=== PATIENT | male | born 1995 | race Caucasian/White ===

== ENCOUNTER 2019-06-13 19:31 | Emergency (ER) | payer BC ==
[2019-06-13 19:43] VITALS: BP 132/94
[2019-06-13] MEDS ORDERED: Tetan/Diph/Pertus SYR(Tdap)* 0.5 ML SYR(BOOSTRIX) use SYR IM ONE (19:48)
[2019-06-13] MEDS ORDERED: Amoxicillin/Clavulanate TAB* 875 MG PO ONE ×2 (19:48→19:49)
--- NOTE | 2019-06-13 19:51 | UC ---
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--happened about 2 hours [facility] [employer] - History of Current Complaint Chief Complaint: UCBiteInjury Stated Complaint: CAT BITE Time Seen by Provider: 06/13/19 19:40 Hx Obtained From: Patient Severity Currently: Mild Severity Initially: Mild Pain Intensity: 1 Pain Scale Used: 0-10 Numeric Onset/Duration: Sudden Onset Type of Bite: Pet Has Animal Been Immunized?: Yes Character: Puncture, Abrasion/Laceration Hx of Bite: Provoked by: - pain and fear Animal Available for Observation: No Animal Control Notified: Yes - Allergies/Home Medications Allergies/Adverse Reactions: Allergies Allergy/AdvReac Type Severity Reaction Status Date / Time No Known Allergies Allergy Verified 06/13/19 19:43 PMH/Surg Hx/FS Hx/Imm Hx Previously Healthy: Yes - Surgical History Surgical History: None - Family History Known Family History: Positive: None - Social History Occupation: Employed Full-time Lives: Alone Alcohol Use: Weekly Substance Use Type: None Smoking Status (MU): Never Smoked Tobacco - Immunization History Most Recent Tetanus Shot: ~ 10 years Review of Systems All Other Systems Reviewed And Are Negative: Yes Constitutional: Positive: Negative Skin: Positive: Other - multiple scratches to both hands from a cat that was in medical distress Eyes: Positive: Negative ENT: Positive: Negative Respiratory: Positive: Negative Cardiovascular: Positive: Negative Gastrointestinal: Positive: Negative Genitourinary: Positive: Negative Motor: Positive: Negative Neurovascular: Positive: Negative Musculoskeletal: Positive: Negative Neurological: Positive: Negative Psychological: Positive: Negative Is Patient Immunocompromised?: No Physical Exam Triage Information Reviewed: Yes Appearance: Well-Appearing, No Pain Distress, Well-Nourished Vital Signs: Initial Vital Signs Temp 98.3 F 06/13/19 19:37 Pulse 73 06/13/19 19:37 Resp 16 06/13/19 19:37 BP 132/94 06/13/19 19:37 Pulse Ox 100 06/13/19 19:37 Vital Signs Reviewed: Yes Eye Exam: Normal Eyes: Positive: Conjunctiva Clear ENT Exam: Normal ENT: Positive: Normal ENT inspection, Hearing grossly normal. Negative: Trismus , Muffled voice, Hoarse voice Dental Exam: Normal Neck exam: Normal Neck: Positive: Supple, Nontender Respiratory Exam: Normal Respiratory: Positive: Chest non-tender, No respiratory distress, No accessory muscle use Cardiovascular Exam: Normal Cardiovascular: Positive: RRR, Brisk Capillary Refill Musculoskeletal Exam: Normal Musculoskeletal: Positive: Strength Intact, ROM Intact, No Edema Neurological Exam: Normal Neurological: Positive: Alert, Muscle Tone Normal Psychological Exam: Normal Skin: Positive: Other - multiple superfical scratches and minor bites to both hands Bite Injury Course/Dx - Course Course Of Treatment: up date tetanus, mild soap and water wash with dressings Augmentin 875 mg po bid for 10 days - Differential Dx/Diagnosis Provider Diagnosis: Cat bite of hand, Tetanus-diphtheria vaccination administered at current visit Discharge - Sign-Out/Discharge Documenting (check all that apply): Patient Departure All imaging exams completed and their final reports reviewed: No Studies - Discharge Plan Condition: Stable Disposition: HOME Prescriptions: Amoxicillin/Clavulanate TAB* [Augmentin TAB 875*] 875 mg PO BID #18 tab Patient Education Materials: Animal Bite (ED), Acute Wound Care (ED) Referrals: [facility] [Outside] - If Needed - Billing Disposition and Condition Condition: STABLE Disposition: Home
== END 2019-06-13 20:09 | disposition home or self-care (01) ==
LOC: UCEAST 19:31
DX: S61.452A Open bite of left hand, initial encounter (principal); S61.451A Open bite of right hand, initial encounter; W55.01XA Bitten by cat, initial encounter; Y92.019 Unspecified place in single-family (private) house as the place of occurrence of the external cause; Z23 Encounter for immunization
CPT/HCPCS: 90715; 99203; A9270-GY; G0463